=== PATIENT | male | born 1960 | race Caucasian/White ===

== ENCOUNTER 2021-08-20 15:32 | Observation (INO) | payer OTHER ==
--- NOTE | 2021-08-20 16:20 | ED ---
General Adult HPI - General Chief complaint: Abdominal Pain Stated complaint: Abd pain Time Seen by Provider: 08/20/21 15:34 Source: patient, EMS Mode of arrival: EMS Limitations: no limitations - History of Present Illness Initial comments: Dictation was produced using [employer] dictation software. please excuse any grammatical, word or spelling errors. Chief Complaint: Patient's 61-year-old male presents to the emergency department via transfer from [facility] for abdominal mass History of Present Illness: 61-year-old male he presents to emergency Department via EMS. Patient was at [facility] today being evaluated for abdominal pain and progressive shortness of breath. According to the transfer documentation he was in their emergency department the day prior and had a workup that was unremarkable. Patient states he has epigastric and right upper quadrant abdominal pain. Patient has had this pain for several days. He ended up getting a computed tomography scan showed a abdominal mass near the area of the right lower liver measuring 8 cm in its greatest diameter. He is transferred here for intractable abdominal pain and further evaluation of unspecified abdominal mass. The ROS documented in this emergency department record has been reviewed and confirmed by me. Those systems with pertinent positive or negative responses have been documented in the HPI. All other systems are other negative and/or noncontributory. PHYSICAL EXAM: General Impression: Alert and oriented x3, not in acute distress HEENT: Normocephalic atraumatic, extra-ocular movements intact, pupils equal and reactive to light bilaterally, mucous membranes moist. Cardiovascular: Heart regular rate and rhythm Chest: Able to complete full sentences, no retractions, no tachypnea Abdomen: abdomen soft, non-tender, non-distended, no organomegaly Musculoskeletal: Pulses present and equal in all extremities, no peripheral e roque Motor: no focal deficits noted Neurological: CN II-XII grossly intact, no focal motor or sensory deficits noted Skin: Intact with no visualized rashes Psych: Normal affect and mood ED course: 11-year-old male presents to emergency Department via transfer from [facility] for abdominal mass. He was sent here after being accepted for evaluation of abdominal mass. It sticks dictation the patient will be instructed by general surgery and oncology. As upon arrival are within acceptable limits. Previous hospital labs were evaluated. Leukocytosis of 14.3. Hemoglobin 15.4. Platelets of 343, sodium 132, potassium of 4.1, bicarb 24, BUN of 11, creatinine of 0.6, lipase. 3, normal AST, ALT and alk phos. Normal bilirubin. Patient had a CT chest done yesterday that showed no pulmo nary embolus however there was suspected abdominal mass that was seen in the lower portions of the film. CT of the abdomen and pelvis was performed today showing 4.4 x 8 x 1 x 6.4 cm mass physician below the inferior vena caval and main portal vein appears unclear according to radiology interpretation were the massive rises from. Case discussed with Dr. Blake was went except patient's care. Imaging studies were bloated into our electronic medical record. Review of Systems ROS Statement: Those systems with pertinent positive or pertinent negative responses have been documented in the HPI. ROS Other: All systems not noted in ROS Statement are negative. Past Medical History Past Medical History: Atrial Fibrillation, Hypertension History of Any Multi-Drug Resistant Organisms: None Reported Past Surgical History: Heart Catheterization, Tonsillectomy Additional Past Surgical History / Comment(s): Cardioversion Past Psychological History: No Psychological Hx Reported Smoking Status: Current every day smoker Past Alcohol Use History: Daily Past Drug Use History: None Reported General Exam Limitations: no limitations Course Vital Signs 08/20/21 08/20/21 15:38 15:57 Temperature 98.5 F Pulse Rate 66 Respiratory 16 18 Rate Blood Pressure 130/82 O2 Sat by Pulse 94 L Oximetry Disposition Clinical Impression: Abdominal mass Disposition: ADMITTED IP TO THIS HOSP Condition: Fair Referrals: None,Stated [Primary Care Provider] - 1-2 days
[2021-08-20] MEDS ORDERED: NALOXONE 0.4 MG/ML 1 ML VIAL IV PRN (16:50)
[2021-08-20] MEDS ORDERED: MORPHINE SULFATE 4 MG/ML SYRINGE IV PRN (16:50)
[2021-08-20] MEDS ORDERED: SODIUM CHLORIDE 0.9% 1,000 ML IV SCH (17:00)
[2021-08-20] MEDS ORDERED: LORazepam 2 MG/ML INJ IV PRN (17:39)
[2021-08-20] MEDS ORDERED: HYDROmorphone 1 MG/ML 1 ML SYRINGE IVP PRN (17:39)
[2021-08-20 18:00] LABS: Appearance,Urine Clear (Clear); Bilirubin,Urine Negative (Negative); Blood,Urine Negative (Negative); Color,Urine Yellow; Glucose,Urine (UA) Negative (Negative); Ketones,Urine 3+ (Negative); Leukocyte Esterase,Urine Negative (Negative); Nitrite,Urine Negative (Negative); Protein,Urine 1+ (Negative); Specific Gravity,Urine >1.050 (1.001-1.035); Urobilinogen,Urine <2.0 mg/dL (<2.0); WBC,Urine <1 /hpf (0-5)
--- NOTE | 2021-08-20 18:12 | HP ---
HISTORY AND PHYSICAL CHIEF COMPLAINTS: Abdominal pain, nausea, vomiting and shortness of breath. HISTORY OF PRESENT ILLNESS: This 61-year-old gentleman with a history of atrial ablation and hypertension, not being followed by any primary physician in the outpatient setting, was complaining of some abdominal pain which is in the upper abdomen as well as shortness of breath, and the patient went to [facility]. CT scan showed significant mass lesions, probably two mass lesions, and the patient was taken to [facility] and was admitted for further evaluation and treatment. There is no history of any fever, rigors or chills. No history of headache, loss of consciousness, seizures. PAST MEDICAL HISTORY: Atrial fibrillation, hypertension. MEDICATIONS: Home medications include vitamin D3, vitamin C, zinc, Zocor. Doses and other medications are reviewed. ALLERGIES: NONE. FAMILY HISTORY: No history of heart disease or strokes in the family. SOCIAL HISTORY: History of smoking and daily alcohol. REVIEW OF SYSTEMS: Fourteen-point review of systems negative except as mentioned earlier. PHYSICAL EXAMINATION: Pulse is 66, blood pressure 130/82, respiration 16. CHEST: Clear to auscultation. CARDIOVASCULAR: S1, S2 normal. NECK: No jugular venous distention. ABDOMEN: Soft, obese. Mild diffuse tenderness on palpation of the upper abdomen. No guarding. No rigidity. No mass palpable. No ascites. LEGS: No edema. No swelling. NERVOUS SYSTEM: No focal deficit. SKIN: No ulcer, rash, bleeding. JOINTS: No active deforming arthropathy. LABS: Reviewed. ASSESSMENT: 1. Upper abdominal pain and upper abdominal masses for evaluation. 2. Rule out acute pancreatitis. 3. Atrial fibrillation. 4. Hypertension. RECOMMENDATIONS AND DISCUSSION: In this 61-year-old gentleman who presented with multiple complex medical issues, we will monitor the patient closely. Will recommend of oncology and surgical evaluations. I would also recommend baseline EKG and other labs also. Prognosis guarded. Further recommendations to follow. Discussed with the patient and son at the bedside. MMODL / IJN: [id number] /
[2021-08-20] MEDS: PANTOPRAZOLE 40 MG/10 ML VIAL IVP SCH (18:31)
[2021-08-20] MEDS: HYDROcodone/APAP 5-325MG 1 EACH TAB PO PRN (18:32)
--- NOTE | 2021-08-20 18:34 | XR ---
EXAMINATION TYPE: XR chest 1V portable DATE OF EXAM: 08/20/2021 5:57 PM COMPARISON: Same day TECHNIQUE: XR chest 1V portable Frontal view of the chest. CLINICAL INDICATION:Male, 61 years old with history of chf; FINDINGS: Lungs/Pleura: There is no evidence of pleural effusion, focal consolidation, or pneumothorax. Pulmonary vascularity: Unremarkable. Heart/mediastinum: Cardiomediastinal silhouette is unremarkable. Musculoskeletal: No acute osseous pathology. IMPRESSION: No acute cardiopulmonary disease/process.
[2021-08-20] MEDS: METOPROLOL TARTRATE 50 MG TAB PO SCH (20:38)
[2021-08-20] MEDS: FLECAINIDE 50 MG TAB PO SCH (20:38)
[2021-08-20] MEDS ORDERED: ATORVASTATIN 10 MG TAB PO SCH (21:00)
[2021-08-20] MEDS ORDERED: MULTIVITAMINS, THERA 1 EACH TAB PO SCH (21:00)
[2021-08-20] MEDS ORDERED: ASPIRIN 81 MG PO SCH (21:00)
[2021-08-21] MEDS: FLECAINIDE 50 MG TAB PO SCH (07:43)
[2021-08-21] MEDS: METOPROLOL TARTRATE 50 MG TAB PO SCH (07:43)
[2021-08-21] MEDS: PANTOPRAZOLE 40 MG/10 ML VIAL IVP SCH (07:44)
[2021-08-21] MEDS ORDERED: CHOLECALCIFEROL 25 MCG (1000 IU) TABLET PO SCH (09:00)
[2021-08-21] MEDS ORDERED: ZINC SULFATE 220 MG CAP PO SCH (09:00)
[2021-08-21] MEDS ORDERED: ASCORBIC ACID 500 MG TAB PO SCH (09:00)
[2021-08-21 11:18] LABS: ALT 21 U/L (10-49); AST 18 U/L (14-35); African American GFR (CKD) 120.7 (60.0-200.0); Albumin/Globulin Ratio 1.94 (1.60-3.17); Alkaline Phosphatase 72 U/L (41-126); Amylase 53 U/L (23-121); BUN/Creat Ratio 15.89 Ratio (12.00-20.00); Blood Urea Nitrogen 10.9 mg/dL (9.0-27.0); Calcium 8.1 mg/dL (8.7-10.3); Carbon Dioxide 22.9 mmol/L (20.0-27.5); Chloride 106 mmol/L (96-109); Chol/HDL Ratio 3.04 Ratio; Globulin 1.6 g/dL (1.6-3.3); Glucose 103 mg/dL (70-110); LDL Cholesterol,Calculated 60.6 mg/dL (0.0-131.0); Lipase 32 U/L (14-60); Non-African American GFR(CKD) 104.2 (60.0-200.0); Potassium 4.1 mmol/L (3.5-5.5); Sodium 139 mmol/L (135-145); Total Protein 4.6 g/dL (6.2-8.2)
--- NOTE | 2021-08-21 12:25 | ECHOF ---
Referral Reason:afib MEASUREMENTS -------- HEIGHT: 177.8 cm WEIGHT: 108.9 kg BP: 118/71 RVIDd: 3.6 cm (< 3.3) IVSd: 1.1 cm (0.6 - 1.1) LVIDd: 5.4 cm (3.9 - 5.3) LVPWd: 1.0 cm (0.6 - 1.1) IVSs: 1.7 cm LVIDs: 3.3 cm LVPWs: 1.7 cm LA Diam: 3.9 cm (2.7 - 3.8) LAESV Index (A-L): 24.76 ml/m Ao Diam: 3.3 cm (2.0 - 3.7) AV Cusp: 2.5 cm (1.5 - 2.6) MV EXCURSION: 17.007 mm (> 18.000) MV EF SLOPE: 130 mm/s (70 - 150) EPSS: 0.3 cm MV E Ross: 1.00 m/s MV DecT: 200 ms MV A Ross: 0.74 m/s MV E/A Ratio: 1.35 FINDINGS -------- Sinus rhythm. This was a technically adequate study. The left ventricular size is normal. There is borderline concentric left ventricular hypertrophy. Overall left ventricular systolic function is normal with, an EF between 55 - 60 %. The right ventricle is mildly enlarged. Normal LA size by volume 22+/-6 ml/m2. The right atrial size is normal. Interatrial and interventricular septum intact. The aortic valve is trileaflet, and appears structurally normal. No aortic stenosis or regurgitation. The mitral valve is normal. There is trace mitral regurgitation. The tricuspid valve appears structurally normal. Trace tricuspid regurgitation present. Unable to estimate RVSP due to inadequate TR jet spectral doppler profile. There is no pulmonic regurgitation present. The aortic root size is normal. Normal inferior vena cava with normal inspiratory collapse consistent with estimated right atrial pre ssure of 5 mmHg. There is no pericardial effusion. CONCLUSIONS -------- 1. There is borderline concentric left ventricular hypertrophy. 2. Overall left ventricular systolic function is normal with, an EF between 55 - 60 %. 3. The right ventricle is mildly enlarged. 4. The aortic valve is trileaflet, and appears structurally normal. No aortic stenosis or regurgitati on. 5. There is trace mitral regurgitation. 6. Trace tricuspid regurgitation present. 7. There is no pericardial effusion. [employer]: Shiloh Huber RDCS
--- NOTE | 2021-08-21 13:27 | P.GSCN ---
History of Present Illness Consult date: 08/21/21 Reason for Consult: Retroperitoneal mass History of present illness: 61-year-old male presented to the hospital yesterday at [facility] with upper abdominal pain. Says his pain feels like it's between his stomach and his heart. Some shortness of breath. Some vomiting yesterday. Says his symptoms have been gradually increasing over the last few weeks. No rectal bleeding or melena. No dysuria or hematuria. Patient denies any weight loss. Patient had a CAT scan performed showing possible retroperitoneal masses in the periportal location. No history of underlying malignancy. Review of Systems The patient denies any acute changes in vision or hearing, no dysphagia or odynophagia, no chest pain or shortness of breath, no dysuria or hematuria, no headache, no runny nose, no rectal bleeding or melena, no unexplained weight loss Past Medical History Past Medical History: Atrial Fibrillation, Hypertension Additional Past Medical History / Comment(s): 1/2 PPD smoker, drinks 4 beer/day History of Any Multi-Drug Resistant Organisms: None Reported Past Surgical History: Heart Catheterization, Tonsillectomy Additional Past Surgical History / Comment(s): Cardioversion Past Anesthesia/Blood Transfusion Reactions: No Reported Reaction Past Psychological History: No Psychological Hx Reported Smoking Status: Current every day smoker Past Alcohol Use History: Daily Past Drug Use History: None Reported Medications and Allergies Home Medications Medication Instructions Recorded Confirmed Type Ascorbic Acid [Vitamin C] 500 mg PO DAILY 08/20/21 08/20/21 History Aspirin EC [Ecotrin Low Dose] 81 mg PO HS 08/20/21 08/20/21 History Cholecalciferol [Vitamin D3 (25 50 mcg PO DAILY 08/20/21 08/20/21 History Mcg = 1000 Iu)] Flecainide Acetate 100 mg PO BID 08/20/21 08/20/21 History Metoprolol Tartrate [Lopressor] 100 mg PO BID 08/20/21 08/20/21 History Multivit-Min/FA/Lycopen/Lutein 1 tab PO HS 08/20/21 08/20/21 History [Centrum Silver Tablet] Simvastatin [Zocor] 20 mg PO HS 08/20/21 08/20/21 History Zinc 50 mg PO DAILY 08/20/21 08/20/21 History Allergies Allergy/AdvReac Type Severity Reaction Status Date / Time No Known Allergies Allergy Verified 08/20/21 17:23 Surgical - Exam Vital Signs Temp Pulse Resp BP Pulse Ox 98.5 F 66 16 130/82 94 L 08/20/21 15:38 08/20/21 15:38 08/20/21 15:38 08/20/21 15:38 08/20/21 15:38 Physical exam: General: Well-developed, well-nourished HEENT: Normocephalic, sclerae nonicteric Abdomen: Mild epigastric tenderness, nondistended Extremities: No edema Neuro: Alert and oriented Results - Labs 08/21/21 05:54 Abnormal Lab Results - Last 24 Hours (Table) 08/20/21 08/21/21 Range/Units Unknown 05:54 Calcium 8.1 L (8.7-10.3) mg/dL Total Protein 4.6 L (6.2-8.2) g/dL Albumin 3.0 L (3.8-4.9) g/dL Ur Specific [place] >1.050 H (1.001-1.035) Urine Protein 1+ H (Negative) Urine Ketones 3+ H (Negative) Diabetes panel 08/21/21 Range/Units 05:54 Sodium 139 (135-145) mmol/L Potassium 4.1 (3.5-5.5) mmol/L Chloride 106 (96-109) mmol/L Carbon Dioxide 22.9 (20.0-27.5) mmol/L BUN 10.9 (9.0-27.0) mg/dL Creatinine 0.7 (0.6-1.5) mg/dL Glucose 103 (70-110) mg/dL Calcium 8.1 L (8.7-10.3) mg/dL AST 18 (14-35) U/L ALT 21 (10-49) U/L Alkaline Phosphatase 72 (41-126) U/L Total Protein 4.6 L (6.2-8.2) g/dL Albumin 3.0 L (3.8-4.9) g/dL Triglycerides 130.00 (0.00-149.00) mg/dL HDL Cholesterol 42.40 (40.00-60.00) mg/dL Calcium panel 08/21/21 Range/Units 05:54 Calcium 8.1 L (8.7-10.3) mg/dL Albumin 3.0 L (3.8-4.9) g/dL Pituitary panel 08/21/21 Range/Units 05:54 Sodium 139 (135-145) mmol/L Potassium 4.1 (3.5-5.5) mmol/L Chloride 106 (96-109) mmol/L Carbon Dioxide 22.9 (20.0-27.5) mmol/L BUN 10.9 (9.0-27.0) mg/dL Creatinine 0.7 (0.6-1.5) mg/dL Glucose 103 (70-110) mg/dL Calcium 8.1 L (8.7-10.3) mg/dL Adrenal panel 08/21/21 Range/Units 05:54 Sodium 139 (135-145) mmol/L Potassium 4.1 (3.5-5.5) mmol/L Chloride 106 (96-109) mmol/L Carbon Dioxide 22.9 (20.0-27.5) mmol/L BUN 10.9 (9.0-27.0) mg/dL Creatinine 0.7 (0.6-1.5) mg/dL Glucose 103 (70-110) mg/dL Calcium 8.1 L (8.7-10.3) mg/dL Total Bilirubin 0.30 (0.30-1.20) mg/dL AST 18 (14-35) U/L ALT 21 (10-49) U/L Alkaline Phosphatase 72 (41-126) U/L Total Protein 4.6 L (6.2-8.2) g/dL Albumin 3.0 L (3.8-4.9) g/dL Assessment and Plan (1) Abdominal mass Narrative/Plan: 61-year-old male with epigastric pain and CAT scan findings of retroperitoneal mass or masses. Given the location malignant adenopathy must be considered. Percutaneous biopsy does not appear to be an option. Patient a require tertiary care evaluation for endoscopic ultrasound with biopsy. Await oncology evaluation. Current Visit: Yes Status: Acute Code(s): R19.00 - INTRA-ABD AND PELVIC SWELLING, MASS AND LUMP, UNSP SITE SNOMED Code(s): 310967114
[2021-08-21 14:28] VITALS: BP 104/57; PULSE 57; RESP 16; TEMP 98.6
[2021-08-21] MEDS: HYDROcodone/APAP 5-325MG 1 EACH TAB PO PRN (15:54)
--- NOTE | 2021-08-21 19:38 | P.CONS ---
History of Present Illness - Reason for Consult Consult date: 08/21/21 Abdominal Mass Requesting physician: Brent Huntley - Chief Complaint Abdominal Pain - History of Present Illness Mr. Dunbar is a 61-year-old male who does not doctor often. He has a 40pack cigarette smoking history. He presented to [facility] with upper abdomina l pain. He admits to nausea and vomiting but appeared more of a frothy sputum/gerd like nausea which occurs shortly after eating. Mid to right epigastic pain. CTA in [place] of the Chest was performed revealing some mediastinal nodes. Therefore abdomen CT was performed and 7-8cm mass one possibly two was identified between the inferior right lobe of liver. Due to the suspicion of this mass we have been asked to further evaluate. General surgery evaluated this patient and due to the location it is felt that tertiary facility would be best for further work-up. Review of Systems All systems: negative Constitutional: Reports as per HPI Past Medical History Past Medical History: Atrial Fibrillation, Hypertension Additional Past Medical History / Comment(s): 1/2 PPD smoker, drinks 4 beer/day History of Any Multi-Drug Resistant Organisms: None Reported Past Surgical History: Heart Catheterization, Tonsillectomy Additional Past Surgical History / Comment(s): Cardioversion Past Anesthesia/Blood Transfusion Reactions: No Reported Reaction Past Psychological History: No Psychological Hx Reported Smoking Status: Current every day smoker Past Alcohol Use History: Daily Past Drug Use History: None Reported Medications and Allergies Home Medications Medication Instructions Recorded Confirmed Type Flecainide Acetate 100 mg PO BID 08/20/21 08/20/21 History Metoprolol Tartrate [Lopressor] 100 mg PO BID 08/20/21 08/20/21 History Simvastatin [Zocor] 20 mg PO HS 08/20/21 08/20/21 History HYDROcodone/APAP 5-325MG [[place] 1 tab PO Q6HR PRN 3 Days #9 tab 08/21/21 Rx 5-325] Ondansetron [Zofran] 4 mg PO Q8HR PRN #20 tab 08/21/21 Rx Pantoprazole Sodium [Protonix] 40 mg PO DAILY #30 tab 08/21/21 Rx Allergies Allergy/AdvReac Type Severity Reaction Status Date / Time No Known Allergies Allergy Verified 08/20/21 17:23 Physical Exam Vitals: Vital Signs Temp Pulse Pulse Resp BP BP Pulse Ox 08/21/21 14:27 98.6 F 57 L 16 104/57 96 08/21/21 07:00 98.2 F 62 18 145/71 96 08/21/21 01:40 99.0 F 57 L 16 118/71 97 08/20/21 23:37 99.1 F 50 L 15 110/63 97 08/20/21 23:10 98.7 F 47 L 18 100/57 96 Intake and Output 08/21/21 08/21/21 08/21/21 06:59 14:59 22:59 Intake Total 118 Balance 118 Intake: Oral 118 Other: Voiding Method Toilet # Voids 1 - Constitutional General appearance: cooperative, no acute distress - EENT Eyes: EOMI, PERRLA ENT: NA/AT - Neck Neck: normal ROM - Respiratory Respiratory: bilateral: CTA - Cardiovascular Rhythm: regular - Gastrointestinal General gastrointestinal: normal bowel sounds, tenderness - Integumentary Integumentary: pale - Neurologic Neurologic: CNII-XII intact - Musculoskeletal Musculoskeletal: generalized weakness, strength equal bilaterally - Psychiatric Psychiatric: A&O x's 3, appropriate affect, intact judgment & insight Results CBC & Chem 7: 08/21/21 05:54 Labs: Abnormal Lab Results - Last 24 Hours (Table) 08/21/21 Range/Units 05:54 Calcium 8.1 L (8.7-10.3) mg/dL Total Protein 4.6 L (6.2-8.2) g/dL Albumin 3.0 L (3.8-4.9) g/dL CT scan - abdomen: report reviewed CT scan - chest: report reviewed CT scan - pelvis: report reviewed Assessment and Plan (1) Nausea and vomiting Status: Acute Code(s): R11.2 - NAUSEA WITH VOMITING, UNSPECIFIED SNOMED Code(s): 82962409 (2) Abdominal mass Status: Acute Code(s): R19.00 - INTRA-ABD AND PELVIC SWELLING, MASS AND LUMP, UNSP SITE SNOMED Code(s): 491886651 Plan: PLan is for EUS which is being schedule through our office We discussed in detail with patient and he is agreeable Physician Attest: I have completed the above dictation and assessment and plan. Agree with above dictation, dictated as a scribe.
--- NOTE | 2021-08-24 09:17 | P.DS ---
Providers Date of admission: 08/20/21 16:50 Expected date of discharge: 08/21/21 Attending physician: Reji Blake Consults: 08/20/21 16:21 Consult Physician Routine Consulting Provider: Misael Choe Consult Reason/Comments: abdominal mass Do you want consulting provider notified?: Yes Consult Physician Routine Consulting Provider: Tacho Barrientos Consult Reason/Comments: abdominal mass Do you want consulting provider notified?: Yes Primary care physician: Stated None Hospital Course: Final diagnosis Upper abdominal pain and upper abdominal masses for evaluation Rule out acute pancreatitis Atrial fibrillation Hypertension Discharge disposition Patient is being discharged in a stable condition with guarded prognosis to home. Patient will follow-up with primary care provider and Dr. Barrientos in the outpatient setting upon discharge. Patient is to be scheduled with oncology for further workup and testing in the outpatient setting. Total time taken is greater than 35 minutes. Hospital course This is a 61-year-old male who was [facility] and on CT showed significant mass lesions probable 2 mass lesions and brought to [facility] for further evaluation. Patient was evaluated by surgery along with oncology and patient requires further testing in the outpatient setting and also requires to be off aspirin for a minimum of one week and this was discussed in length with the patient. Family members also present at the bedside. Patient is agreeable to this and also strongly encourage the patient to obtain a primary care provider to follow with. Patient states he has not needed one as he follows with his cow washer and has been receiving his medications through them. Patient will follow-up with oncology Dr. Barrientos in the outpatient setting this week. Currently no reports of chest pain, shortness of breath, or palpitations. Patient is afebrile. No reports of nausea or vomiting and patient is tolerating diet. Patient will be discharged home today. On exam vital signs are stable. Cardio S1, S2 are muffled. Respiratory system shows diminished breath sounds at the bases with no wheezing or rhonchi noted. Abdomen is soft and obese, and nontender. Nervous system shows no focal deficits. Please refer to medication reconciliation sheet for a list of medications. The impression and plan of care has been dictated by Yelena Diop, nurse practitioner as directed. MD Balwinder I have performed a history and examination and MDM of this patient, discussed the same with the dictator, and agree with the dictator's assessment and plan as written ,documented as a scribe. Based on total visit time, I have performed more than 50% of the visit. Any additional findings or plans will be noted. Patient Condition at Discharge: Fair Plan - Discharge Summary Discharge Rx Participant: No New Discharge Prescriptions: New Pantoprazole Sodium [Protonix] 40 mg PO DAILY #30 tab Ondansetron [Zofran] 4 mg PO Q8HR PRN #20 tab PRN Reason: Nausea HYDROcodone/APAP 5-325MG [[place] 5-325] 1 tab PO Q6HR PRN 3 Days #9 tab PRN Reason: Pain Continue Simvastatin [Zocor] 20 mg PO HS Metoprolol Tartrate [Lopressor] 100 mg PO BID Flecainide Acetate 100 mg PO BID Discontinued Ascorbic Acid [Vitamin C] 500 mg PO DAILY Cholecalciferol [Vitamin D3 (25 Mcg = 1000 Iu)] 50 mcg PO DAILY Zinc 50 mg PO DAILY Multivit-Min/FA/Lycopen/Lutein [Centrum Silver Tablet] 1 tab PO HS Aspirin EC [Ecotrin Low Dose] 81 mg PO HS Discharge Medication List Flecainide Acetate 100 mg PO BID 08/20/21 [History] Metoprolol Tartrate [Lopressor] 100 mg PO BID 08/20/21 [History] Simvastatin [Zocor] 20 mg PO HS 08/20/21 [History] HYDROcodone/APAP 5-325MG [[place] 5-325] 1 tab PO Q6HR PRN 3 Days #9 tab 08/21/21 [Rx] Ondansetron [Zofran] 4 mg PO Q8HR PRN #20 tab 08/21/21 [Rx] Pantoprazole Sodium [Protonix] 40 mg PO DAILY #30 tab 08/21/21 [Rx] Follow up Appointment(s)/Referral(s): Tacho Barrientos MD [STAFF PHYSICIAN] - 1 Week None,Stated [Primary Care Provider] - 1-2 days Activity/Diet/Wound Care/Special Instructions: Activity Limited until follow-up Follow-up with oncology as discussed and scheduled Patient needs to establish with a primary care provider in [place] and this was discussed as patient has not seen primary care provider in over 5 years Continue to hold aspirin and vitamin supplements and vitamin C Oncology will call to discuss appointment times and further testing Continue current diet Discharge Disposition: HOME SELF-CARE
== END 2021-08-21 17:00 | disposition home or self-care (01) ==
LOC: EC 15:32 → 6NMEDSUR 16:50
PROVIDERS: ADMIT Hospitalist; ATTEND Hospitalist
DX: R19.09 Other intra-abdominal and pelvic swelling, mass and lump (principal); R10.11 Right upper quadrant pain; R10.13 Epigastric pain; I10 Essential (primary) hypertension; I48.91 Unspecified atrial fibrillation; F17.210 Nicotine dependence, cigarettes, uncomplicated; Z20.822 Contact with and (suspected) exposure to COVID-19; K21.9 Gastro-esophageal reflux disease without esophagitis; R06.02 Shortness of breath; R11.2 Nausea with vomiting, unspecified; D72.829 Elevated white blood cell count, unspecified; Z79.899 Other long term (current) drug therapy
CPT/HCPCS: 99285; 96376; 96375; 96374; 93005; 93306; 80061; 80053; 82150; 83690; 81001; 87635; 71045; G0378 ×2; J1170; C9113 ×2

== ENCOUNTER → 2021-12-04 | Outpatient (CLI) | payer OTHER ==
--- NOTE | 2021-12-09 06:17 | MR ---
EXAMINATION TYPE: MR liver wo/w con DATE OF EXAM: 12/04/2021 COMPARISON: PET CT scan 11/11/2021 HISTORY: Abnormal liver function study CONTRAST: Standard multiplanar, multisequence MRI departmental protocol images were obtained without contrast a nd with 10 mL intravenous Gadavist gadolinium contrast. There is a 4.7 cm rounded mixed signal mass in the inferior aspect of the pancreatic head. This shows some peripheral enhancement. On the right lateral aspect of the mass there is a second similar appea ring mass that measures 7 cm in diameter with mixed signal and also peripheral enhancement. The large r mass is adjacent to the snow hepatis and the caudate lobe of the liver. This mass appears to be en tirely outside of the liver. There are multiple cysts in the liver that measure up to 2.5 cm. The bile ducts are not dilated. Spleen is intact. The stomach is intact. The pancreatic body and tail appear normal. Pancreatic duct is not dilated. There is no retroperitoneal adenopathy. Kidneys show satisfactory contrast opacification. There is no hydronephrosis. There is normal enhance ment of the portal venous system. IMPRESSION: Round sharply marginated masses in the right upper quadrant at the inferior pancreatic head and at th e snow hepatis consistent with tumor. Masses are increased in size compared to the PET/CT scan of 05/2022. The masses measure 4 cm and 5.5 cm on the old exam. 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 The larger mass is in contact with the smaller mass and could be a second focus of tumor or metastatic deposit. No ev idence of bile duct or pancreatic duct obstruction.
== END | disposition home or self-care (01) ==
LOC: RADMRIMAIN 08:20
PROVIDERS: ATTEND Internal Medicine Hematology & Oncology
DX: D3A.8 Other benign neuroendocrine tumors (principal); R16.0 Hepatomegaly, not elsewhere classified
CPT/HCPCS: 74183; A9585